=== PATIENT | female | born 1995 | race Caucasian/White ===

== ENCOUNTER 2017-11-20 19:13 | Emergency (ER) | payer SELFPAY ==
[~2017-11-20] VITALS: Ht 162.6 cm; Wt 99.8 kg
[2017-11-20 19:19] VITALS: Ht 162.6 cm; Wt 99.8 kg
[2017-11-20 20:02] LABS: BASOPHIL % 0.5 % (0-2); PLATELET COUNT 276 x10^3mcL (130-400); RED CELL DISTRIBUTION WIDTH 13.1 % (11.5-14.5)
[2017-11-20 20:12] LABS: CALCIUM 8.7 mg/dL (8.5-10.1); CARBON DIOXIDE 23.9 mmol/L (21-32); CHLORIDE SERUM 106 mmol/L (98-107); GFR1 > 60 mL/min; GLUCOSE SERUM 118 mg/dL (74-106); POTASSIUM SERUM 3.5 mmol/L (3.5-5.1); SODIUM SERUM 141 mmol/L (136-145)
[2017-11-20 20:16] LABS: ALBUMIN 3.7 g/dL (3.4-5.0); ALKALINE PHOSPHATASE 92 U/L (46-116); ALT/SGPT 22 U/L (14-59); AST/SGOT 10 U/L (15-37); BILIRUBIN TOTAL 0.2 mg/dL (0.20-1.00); CHOLESTEROL 152 mg/dL (<200); LIPASE 278 IU/L (73-393); TOTAL PROTEIN, SERUM 7.7 g/dL (6.4-8.2)
[2017-11-20 20:18] LABS: CHOLESTEROL/HDL RATIO 5.4; HDL CHOLESTEROL 28 mg/dL (40-60); TRIGLYCERIDES 415 mg/dL (<150)
[2017-11-20 20:29] LABS: FREE T4 0.86 ng/dL (0.76-1.46); T4(THYROXINE) 6.3 ug/dL (4.7-13.3)
[2017-11-20 20:31] LABS: T3 TOTAL 1.06 ng/mL
[2017-11-20 21:19] VITALS: BP 128/84
== END 2017-11-20 21:19 | disposition home or self-care (01) ==
LOC: ED 19:13
PROVIDERS: Specialist
DX: G40.409 Other generalized epilepsy and epileptic syndromes, not intractable, without status epilepticus (principal)
CPT/HCPCS: 83880; 84439; J1165